=== PATIENT | male | born 1995 | race Caucasian/White ===

== ENCOUNTER 2023-06-27 01:53 | Emergency (ER) | payer MEDICAID ==
[~2023-06-27] VITALS: Ht 177.8 cm; Wt 79.4 kg
[2023-06-27 02:24] VITALS: BP 120/68; TEMP 98.7; O2SAT 97
== END 2023-06-27 03:15 | disposition left against medical advice (07) ==
LOC: ER 02:06
DX: T16.2XXA Foreign body in left ear, initial encounter (principal); Z53.21 Procedure and treatment not carried out due to patient leaving prior to being seen by health care provider